=== PATIENT | male | born 1975 | race Caucasian/White ===

== ENCOUNTER 2020-12-16 16:29 | Emergency (ER) | payer BC, OTHER ==
[~2020-12-16] VITALS: Ht 182.9 cm; Wt 75.0 kg
[2020-12-16 17:03] VITALS: BP 129/89
== END 2020-12-16 17:50 | disposition left against medical advice (07) ==
LOC: ER 16:30
DX: R53.83 Other fatigue (principal); R43.9 Unspecified disturbances of smell and taste; Z53.21 Procedure and treatment not carried out due to patient leaving prior to being seen by health care provider

== ENCOUNTER 2024-11-18 09:55 | Emergency (ER) | payer BC, OTHER ==
[~2024-11-18] VITALS: Ht 193 cm; Wt 66.8 kg
[2024-11-18 10:27] LABS: MEAN PLATELET VOLUME 8.0 FL (7.4-10.4); RED CELL DISTRIBUTION WIDTH 16.6 % (11.5-14.5)
[2024-11-18] MEDS: ondansetron/PF 4mg/2ml inj IV ONE (10:41)
[2024-11-18] MEDS: morphine 4 MG/ML inj SYRINge IV ONE (10:41)
[2024-11-18 10:43] LABS: CREATININE 0.74 MG/DL (0.60-1.10); TOTAL CARBON DIOXIDE 27.2 MMOL/L (24-32); eCRCL 114 ML/MIN; eGFR > 90 ML/MIN
[2024-11-18] MEDS: normal saline 1000ML IV soln IVB ONE (10:43)
[2024-11-18 10:59] LABS: PLATELET ESTIMATE NORMAL
[2024-11-18 11:12] LABS: APTT 27 SECONDS (22-32); INR 1.1 INR
[2024-11-18] MEDS: normal saline 1000ml 1,000 ML IV ONE (12:00)
--- NOTE | 2024-11-18 12:18 | RADIOLOGY REPORT ---
Exam: CT CT ABDOMEN PELVIS History: abdominal pain Comparison Study: None Technique: Multidetector spiral CT of the abdomen and pelvis was performed from lung bases to pubic symphysis. Imaging was performed without IV contrast. Axial, coronal and sagittal multiplanar reform ats were obtained from the axial data set by the technologist. Radiation dose : Abdomen/Pelvis: CTDIvol 8 mGy, DLP 412 mGy*cm. Findings: Evaluation of solid organs is limited due to lack of intravenous contrast use. Lung Bases: No acute or significant lung base finding. Normal heart size. No pleural or pericardial effusion. Liver: Hypodensity along the falciform ligament, likely focal fatty infiltration. Gallbladder and biliary Tree: Sludge in the gallbladder. Spleen: Unremarkable Pancreas: The pancreas is grossly normal in appearance. Adrenal Glands: Unremarkable Kidneys: Subcentimeter proteinaceous or hemorrhagic right renal cyst. No hydronephrosis or nephrolith iasis. Bladder: Grossly unremarkable for degree of distention. Bowel: The stomach is grossly normal in appearance. Small bowel and colon are normal in caliber and d istribution. Normal appendix is visualized in the right lower quadrant without findings of appendicit is. Ascites: Absent Lymphadenopathy: No mesenteric, retroperitoneal or periportal lymphadenopathy. Abdominal wall and Mesentery: Unremarkable. Vasculature: The visualized abdominal aorta is normal in size and caliber. Evaluation of abdominal a nd pelvic vessels is limited due to lack of intravenous contrast. Pelvic Organs: Unremarkable Musculoskeletal: No aggressive focal bony lesions, acute fractures or dislocation. IMPRESSION: 1. No acute abdominal or pelvic findings. 2. Likely focal fatty infiltration in the liver along the falciform ligament. Sludge in the gallblad nathaly. Subcentimeter proteinaceous or hemorrhagic right renal cyst. Radiation optimization: All CT scans at this facility use at least one of these dose optimization elisa hniques: Automated exposure control mA and/or kV adjustment per patient size (includes targeted exams where dose is matched to clinical indication) or iterative reconstruction. HS:Y
--- NOTE | 2024-11-18 12:55 | Physician Documentation ---
History of Present Illness Chief Complaint: Abdominal Pain w/vomiting Stated Complaint: SEVERE ABD PAIN Time Seen by MD: 10:17 Source: patient Mode of Arrival: Ambulatory Exam Limitations: no limitations HPI 49-year-old male who comes in with significant other for abdominal pain and nausea and vomiting that has been going on for six months getting progressively worse. Symptoms are mostly in the morning when he 1st gets up. He does use marijuana. He reports he has not had a workup for his symptoms he has been asking for a colonoscopy and he states his primary care provider finally ordered one and he has one scheduled next month with Dr. Calvillo. He reports that the 1st symptom that starts as his nausea and vomiting in the abdominal pain then occurs after he has been vomiting for awhile. Pain is mostly in his upper abdomen. No relationship to p.o. intake. He does a drank a moderate amount of alcohol three days a week. Medication Reconciliation Allergies: Coded Allergies: wheat (Verified Allergy, Unknown, 11/18/24) Scheduled PRN ONDANSETRON ODT 4mg tablet (Ondansetron Odt), 1 TAB PO Q6H PRN PRN for nausea/vomiting Past Medical History Past Medical History: No Pertinent History Alcohol Use: Heavy Drug Use: marijuana Lives with: Spouse Lives In: Home Occupation: employed Review of Systems All Other Systems at this time: Reviewed and Negative Physical Exam Vital Signs: Temperature: 96.0, Source: Temporal, Heart Rate: 54, Respiratory Rate: 17, BP: 117/73, Pulse Oximetry: 100, Weight: 66.810 Oxygen Flow Rate: 0 Physical Exam GENERAL: Alert, no acute distress. HEENT: NCAT, EOMI, PERRL, normal oropharynx, moist oral mucosa. NECK: Supple, trachea midline. CARDIAC: Regular rate and rhythm, no murmurs, rubs, or gallops. Equal distal pulses. No lower extremity edema, cap refill less than 2 seconds. RESPIRATORY: Equal breath sounds, clear to auscultation bilaterally, no respiratory distress. GASTROINTESTINAL: Non distended, soft, generalized tenderness in all quadrants but mostly the upper, No guarding or rebound. MUSCULOSKELETAL: Normal range of motion, nontender, no swelling. Normal gait. NEUROLOGICAL: Awake, alert, and oriented x 3. SKIN: Warm/dry, no pallor, no rash. PSYCH: Alert and appropriate. Affect congruent with mood. Speech is clear. Good eye contact. Progress Progress Note Exam: CT CT ABDOMEN PELVIS History: abdominal pain Comparison Study: None Technique: Multidetector spiral CT of the abdomen and pelvis was performed from lung bases to pubic symphysis. Imaging was performed without IV contrast. Axial, coronal and sagittal multiplanar reformats were obtained from the axial data set by the technologist. Radiation dose : Abdomen/Pelvis: CTDIvol 8 mGy, DLP 412 mGy*cm. Findings: Evaluation of solid organs is limited due to lack of intravenous contrast use. Lung Bases: No acute or significant lung base finding. Normal heart size. No pleural or pericardial effusion. Liver: Hypodensity along the falciform ligament, likely focal fatty infiltration. Gallbladder and biliary Tree: Sludge in the gallbladder. Spleen: Unremarkable Pancreas: The pancreas is grossly normal in appearance. Adrenal Glands: Unremarkable Kidneys: Subcentimeter proteinaceous or hemorrhagic right renal cyst. No hydronephrosis or nephrolithiasis. Bladder: Grossly unremarkable for degree of distention. Bowel: The stomach is grossly normal in appearance. Small bowel and colon are normal in caliber and distribution. Normal appendix is visualized in the right lower quadrant without findings of appendicitis. Ascites: Absent Lymphadenopathy: No mesenteric, retroperitoneal or periportal lymphadenopathy. Abdominal wall and Mesentery: Unremarkable. Vasculature: The visualized abdominal aorta is normal in size and caliber. Evaluation of abdominal and pelvic vessels is limited due to lack of intravenous contrast. Pelvic Organs: Unremarkable Musculoskeletal: No aggressive focal bony lesions, acute fractures or dislocation. IMPRESSION: 1. No acute abdominal or pelvic findings. 2. Likely focal fatty infiltration in the liver along the falciform ligament. Sludge in the gallbladder. Subcentimeter proteinaceous or hemorrhagic right renal cyst. Radiation optimization: All CT scans at this facility use at least one of these dose optimization techniques: Automated exposure control mA and/or kV adjustment per patient size (includes targeted exams where dose is matched to clinical indication) or iterative reconstruction. HS:Y Results/Orders Reviewed/noted all lab results: Yes Results/Orders Orders - ROLAND GARCIA Cbc/Diff (11/18/24 10:14) Ct Abdomen Pelvis (11/18/24 10:30) Urinalysis, Cult If Indicated (11/18/24 10:30) Pathology Review (11/18/24 10:19) Normal Saline 1000ml (0.9% Sodium Chlori (11/18/24 12:00) Completed Orders - ROLAND GARCIA CMP (11/18/24 10:14) Morphine 4mg/Ml Inj. (Morphine Inj.) (11/18/24 10:30) Ondansetron Inj. (Zofran 4mg/2ml Vial) (11/18/24 10:30) Normal Saline 1000ml (0.9% Sodium Chlori (11/18/24 10:30) Ct Abdomen Pelvis (11/18/24 10:30) Lipase (11/18/24 10:45) Pt Inr (11/18/24 10:45) PTT (11/18/24 10:45) Morphine 2mg/Ml Inj. (Morphine Inj.) (11/18/24 12:40) Medications Received in ER Medications (Trade) Dose Ordered Sig/Satish Route PRN Reason Start Time Stop Time Status Last Admin Dose Admin (morphine inj.) 4 mg ONCE ONCE IV 11/18/24 10:30 11/18/24 10:35 DC 11/18/24 10:41 4 MG (Zofran 4mg/2ml vial) 4 mg ONCE ONCE IV 11/18/24 10:30 11/18/24 10:35 DC 11/18/24 10:41 4 MG (0.9% sodium chloride (NS) 1000ml IV soln) 1,000 ml ONCE ONCE IVB 11/18/24 10:30 11/18/24 10:35 DC 11/18/24 10:43 1,000 ML Sodium Chloride 1,000 ml @ 1,000 mls/hr ONCE ONCE IV 11/18/24 12:00 11/18/24 12:59 11/18/24 12:00 1,000 MLS/HR (morphine inj.) 1 mg ONCE ONCE IV 11/18/24 12:40 11/18/24 12:41 DC 11/18/24 12:50 1 MG Vital Signs 11/18/24 11/18/24 11/18/24 11/18/24 10:01 10:24 10:26 11:30 Temp 96.0 Pulse 55 52 58 Resp 15 22 16 B/P (MAP) 145/82 143/97 (112) 133/88 (103) Pulse Ox 100 100 97 O2 Flow Rate 0 0 11/18/24 12:01 Pulse 54 Resp 17 B/P (MAP) 117/73 (88) Pulse Ox 100 Laboratory Tests Test 11/18/24 10:17 11/18/24 10:19 11/18/24 10:28 Prothrombin Time 11.0 INR International Normalized Ratio 1.1 Activated Partial Thromboplast Time 27 Coagulation Comments Lipase 20 White Blood Count 8.0 Red Blood Count 4.65 L Hemoglobin 18.1 *H Hematocrit 52.4 H Mean Corpuscular Volume 112.7 H Mean Corpuscular Hemoglobin 39.0 H Mean Corpuscular Hemoglobin Concent 34.6 Red Cell Distribution Width 16.6 H Platelet Count 231 Mean Platelet Volume 8.0 Neutrophils (%) (Auto) 68.3 Lymphocytes (%) (Auto) 16.5 L Monocytes (%) (Auto) 13.7 H Eosinophils (%) (Auto) 0.9 Basophils (%) (Auto) 0.6 Neutrophils # (Auto) 5.5 Lymphocytes # (Auto) 1.3 Monocytes # (Auto) 1.1 H Eosinophils # (Auto) 0.1 Basophils # (Auto) 0.0 CBC Comment Platelet Estimate Normal Red Blood Cell Morphology Perf Basophilic Stippling Anisocytosis 1+ Macrocytosis 2+ Target Cells Few Schistocytes Few Sodium Level 137 Potassium Level 3.9 Chloride Level 100 Carbon Dioxide Level 27.2 Anion Gap 10 Blood Urea Nitrogen 8 Creatinine 0.74 Estimated GFR/1.73 m2 > 90 BUN/Creatinine Ratio 10.8 Glucose Level 118 H Calcium Level 9.3 Total Bilirubin 1.3 H Aspartate Amino Transf (AST/SGOT) 43 H Alanine Aminotransferase (ALT/SGPT) 56 Alkaline Phosphatase 73 Total Protein 7.1 Albumin 4.2 Globulin 2.9 Albumin/Globulin Ratio 1.4 Chemistry Comments Urine Comment Re-Evaluation Re-Evaluation : Re-Evaluation Time: 14:00 Re-Evaluation: Resolved Progress resolved after haldol Medical Decision Making Differential Dx:Considerations: Include: AAA, Angina/NC, Aortic dissection, Appendicitis, Bowel obstruction, Cholangitis, Cholelithasis, Constipation, Diverticular disease, Esophageal rupture, Esophagitis, Gastritis/PUD, Gastroenteritis, GI hemorrhage, Hernia, Hepatitis, Inflammatory BD, Ischemic bowel, Pancreatitis, Porphyria, Testicular torsion, Trauma, intraabdominal, Urinary obstruction, Urinary tract infection, Urolithiasis, Other Additional Comments Patient was given a total of 6 mg of morphine for his abdominal pain along with Zofran 4 mg however he had no improvement in his symptoms. After his CT scan came back normal I ended up giving him Haldol 5 mg and he immediately turned the corner when I went to check on him he was sitting up on the gurney in stated she could not believe the difference. Patient stated he felt completely normal. We discussed the possibility of cyclic vomiting syndrome related to marijuana use which he was very familiar with. The fact that he had such resolution of his symptoms with Haldol, the chronicity of his s ymptoms, the fact that mostly in the morning, and he reports heavy marijuana use with normal CT and labs is consistent with this diagnosis. Departure Time of Disposition: 12:54 Disposition: 01 HOME / SELF CARE / HOMELESS Impression: Primary Impression: Abdominal pain Qualified Codes: R10.84 - Generalized abdominal pain Additional Impressions: Vomiting Qualified Codes: R11.10 - Vomiting, unspecified Macrocytosis without anemia Excessive drinking alcohol Condition: Stable Discharge Instructions: Abdominal Pain (Nonspecific) Additional Instructions: Like we discussed I suspect that your symptoms are due to cyclic vomiting syndrome considering you had complete resolution of your symptoms with Haldol, your CT scan did not have any positive findings that would explain your symptoms, your lab results were also unremarkable and you report using marijuana. I recommend you work on reducing your marijuana intake since there is a dose relationship with cyclic vomiting and amount of marijuana used. I also recommend you follow up with your PCP about getting your b12 level checked due to your macrocytosis on your lab work. Exam: CT CT ABDOMEN PELVIS History: abdominal pain Comparison Study: None Technique: Multidetector spiral CT of the abdomen and pelvis was performed from lung bases to pubic symphysis. Imaging was performed without IV contrast. Axial, coronal and sagittal multiplanar reformats were obtained from the axial data set by the technologist. Radiation dose : Abdomen/Pelvis: CTDIvol 8 mGy, DLP 412 mGy*cm. Findings: Evaluation of solid organs is limited due to lack of intravenous contrast use. Lung Bases: No acute or significant lung base finding. Normal heart size. No pleural or pericardial effusion. Liver: Hypodensity along the falciform ligament, likely focal fatty infiltration. Gallbladder and biliary Tree: Sludge in the gallbladder. Spleen: Unremarkable Pancreas: The pancreas is grossly normal in appearance. Adrenal Glands: Unremarkable Kidneys: Subcentimeter proteinaceous or hemorrhagic right renal cyst. No hydronephrosis or nephrolithiasis. Bladder: Grossly unremarkable for degree of distention. Bowel: The stomach is grossly normal in appearance. Small bowel and colon are normal in caliber and distribution. Normal appendix is visualized in the right lower quadrant without findings of appendicitis. Ascites: Absent Lymphadenopathy: No mesenteric, retroperitoneal or periportal lymphadenopathy. Abdominal wall and Mesentery: Unremarkable. Vasculature: The visualized abdominal aorta is normal in size and caliber. Evaluation of abdominal and pelvic vessels is limited due to lack of intravenous contrast. Pelvic Organs: Unremarkable Musculoskeletal: No aggressive focal bony lesions, acute fractures or dislocation. IMPRESSION: 1. No acute abdominal or pelvic findings. 2. Likely focal fatty infiltration in the liver along the falciform ligament. Sludge in the gallbladder. Subcentimeter proteinaceous or hemorrhagic right renal cyst. Radiation optimization: All CT scans at this facility use at least one of these dose optimization techniques: Automated exposure control mA and/or kV adjustment per patient size (includes targeted exams where dose is matched to clinical indication) or iterative reconstruction. HS:Y Referrals: NO PRIMARY CARE PROVIDER (PCP) Prescriptions ONDANSETRON ODT 4mg tablet (ONDANSETRON ODT) 4 Mg Tab.rapdis 1 TAB PO Q6H PRN PRN for nausea/vomiting for 4 Days, #16 TAB 0 Refills Prov: ROLAND GARCIA 11/18/24 Education Educated: Patient, Family Educated regarding: diagnosis, treatment, need for follow up Signature Scribe Signature: x Attestation: ROLAND Marcano Nov 18, 2024 12:55
[2024-11-18] MEDS ORDERED: haloperidol lactate 5mg/ml inj IVH ONE (13:00)
[2024-11-18 13:14] LABS: LEUKOCYTE ESTERASE ,URINE NEGATIVE (Neg); NITRITES, URINE NEGATIVE (Neg); OCCULT BLOOD,URINE NEGATIVE (Neg)
[2024-11-18 13:16] LABS: UA COLLECTION TYPE NON-SPECIFIED
[2024-11-18 13:19] LABS: URINE AMPHETAMINE SCREEN NEGATIVE (Neg); URINE BARBITUATE SCREEN NEGATIVE (Neg); URINE BENZODIAZEPINES SCREEN NEGATIVE (Neg); URINE CANNABINOID SCREEN POSITIVE (Neg); URINE COCAINE SCREEN NEGATIVE (Neg); URINE METHADONE SCREEN NEGATIVE (Neg); URINE OPIATE SCREEN POSITIVE (Neg); URINE PHENCYCLIDINE SCREEN NEGATIVE (Neg)
[2024-11-18] MEDS: haloperidol lactate 5mg/ml inj IM ONE (13:24)
[2024-11-18 13:25] LABS: SQUAMOUS EPITHELIAL CELL,UR FEW /LPF (FEW)
[2024-11-18 13:27] LABS: MUCUS STRANDS MANY /LPF (Neg)
[2024-11-18 13:28] LABS: HYALINE CASTS 0-3 /LPF (NEGATIVE)
[2024-11-18] MEDS ORDERED: ONDA-243 PO (14:23)
[2024-11-18 15:16] VITALS: BP 91/60; PULSE 51; RESP 18; TEMP 96; O2SAT 98
== END 2024-11-18 15:14 | disposition home or self-care (01) ==
LOC: ER 09:56
DX: R10.84 Generalized abdominal pain (principal); R11.2 Nausea with vomiting, unspecified; D75.89 Other specified diseases of blood and blood-forming organs; F10.10 Alcohol abuse, uncomplicated; F12.90 Cannabis use, unspecified, uncomplicated; Y90.9 Presence of alcohol in blood, level not specified; Z91.018 Allergy to other foods
CPT/HCPCS: 36415; 74176; 80053; 80305; 81001; 83690; 85008; 85025; 85610; 85730; 96361; 96372; 96374; 96375; 96376; 99285; J1630; J2270; J2405; J7030